=== PATIENT | male | born 1985 | race Caucasian/White ===

== ENCOUNTER 2017-09-12 11:36 | Emergency (ER) | payer SELFPAY ==
[~2017-09-12] VITALS: Ht 172.7 cm; Wt 83.3 kg
[~2017-09-12 11:36] MED LIST: DIGOXIN
[2017-09-12 11:44] VITALS: BP 153/101
== END 2017-09-12 13:45 | disposition home or self-care (01) ==
LOC: ED 13:35
DX: B86 Scabies (principal)
CPT/HCPCS: 99283; Q0177

== ENCOUNTER 2017-11-22 08:36 | Emergency (ER) | payer SELFPAY ==
[~2017-11-22] VITALS: Ht 175.3 cm; Wt 84.1 kg
[2017-11-22 09:23] LABS: BASOPHILS # (AUTO) 0.09 x10^3/uL (0-0.1); BASOPHILS % (AUTO) 1 % (0-1); EOSINOPHILS # (AUTO) 0.32 x10^3/uL (0-0.4); EOSINOPHILS % (AUTO) 3 % (1-7); LYMPHOCYTES % (AUTO) 17 % (22-44); MD NO; MEAN CORPUSCULAR HEMOGLOBIN 30.3 pg (27.5-34.5); MEAN CORPUSCULAR HGB CONC 34.2 g/dL (33.2-36.2); MEAN CORPUSCULAR VOLUME 88.8 fL (81-97); MEAN PLATELET VOLUME 8.3 fL (7.4-10.4); MONOCYTES # (AUTO) 0.62 x10^3/uL (0.2-0.8); MONOCYTES % (AUTO) 6 % (2-9); NEUTROPHILS # (AUTO) 7.55 x10^3/uL (1.8-6.8); NEUTROPHILS % (AUTO) 73 % (42-75); PLATELET COUNT 265 x10^3/uL (130-400); RED BLOOD COUNT 5.78 x10^6/uL (4.38-5.82); RED CELL DISTRIBUTION WIDTH 13.8 % (9.4-14.8)
[2017-11-22 09:34] LABS: ALBUMIN 3.8 g/dL (3.4-5.0); ANION GAP 9 mmol/L (5-15); CALCIUM 8.9 mg/dL (8.5-10.1); CHLORIDE 108 mmol/L (98-107); CREATININE 0.84 mg/dL (0.7-1.3)
[2017-11-22 09:44] LABS: FREE T4 (FREE THYROXINE) 2.02 ng/dL (0.76-1.46)
[2017-11-22 10:29] VITALS: BP 154/97
== END 2017-11-22 10:31 | disposition home or self-care (01) ==
LOC: ED 10:26
DX: I10 Essential (primary) hypertension (principal)
CPT/HCPCS: 36415; 80048; 82040; 84439; 84443; 85025; 93005; 99285

== ENCOUNTER 2018-03-28 04:00 | Emergency (ER) | payer SELFPAY ==
[~2018-03-28] VITALS: Ht 172.7 cm; Wt 83.2 kg
[2018-03-28 05:32] VITALS: BP 139/88
== END 2018-03-28 05:38 | disposition home or self-care (01) ==
LOC: ED 05:32
DX: R07.89 Other chest pain (principal); R11.0 Nausea; I10 Essential (primary) hypertension; F17.210 Nicotine dependence, cigarettes, uncomplicated
CPT/HCPCS: 71046; 93005; 99284

== ENCOUNTER 2021-03-30 10:59 | Emergency (ER) | payer MEDICAID ==
[~2021-03-30] VITALS: Ht 172.7 cm; Wt 84.6 kg
[2021-03-30 11:01] VITALS: BP 150/116
--- NOTE | 2021-03-30 11:09 | NUR ---
PATIENT WALKED BACK FROM TRIAGE WITH CHIEF C/O OF SWOLLEN LYMPH NODES X3 DAYS AND FEVER 2 DAYS AGO. DENIES COUGH. NADN, CALL LIGHT WITHIN REACH.
[2021-03-30] MEDS ORDERED: DEXAMETHASONE 4 MG TABLET ONE (12:07)
[2021-03-30] MEDS ORDERED: DEXAMETHASONE 4 MG TABLET PO ONE (12:30)
--- NOTE | 2021-03-30 12:33 | NUR ---
TASK RN, COVERING MEAL BREAK FOR PRIMARY. PT RESTING COMFORTABLY, AWAITING STREP RESULTS.
--- NOTE | 2021-03-30 13:04 | NUR ---
PATIENT SITTING IN GURNEY ON PHONE, NADN, CALL LIGHT WITHIN REACH. PATIENT UP FOR RECHECK.
[2021-03-30] MEDS ORDERED: BICILLIN-LA 1,200,000 UNITS/2 ML IM ONE (13:30)
--- NOTE | 2021-03-30 13:44 | NUR ---
MEDICATION REQUESTED FROM PHARMACY.
--- NOTE | 2021-03-30 14:00 | NUR ---
Patient given discharge instructions and they have confirmed that they understand the instructions. Patient ambulatory with steady gait. NAD, all questions answered appropriately, denies additional needs at this time. No personal belongings left in room after discharge.
== END 2021-03-30 14:00 | disposition home or self-care (01) ==
LOC: ED 13:55
DX: J02.0 Streptococcal pharyngitis (principal); F17.200 Nicotine dependence, unspecified, uncomplicated
CPT/HCPCS: 87880; 96372; 99283; J0561